=== PATIENT | male | born 1975 | race Caucasian/White ===

== ENCOUNTER 2023-05-13 01:57 | Inpatient (IN) | payer BC ==
[~2023-05-13] VITALS: Ht 177.8 cm; Wt 105.2 kg
[2023-05-13] MEDS ORDERED: ACETAMINOPHEN 500 MG TABLET PO ONE (02:30)
[2023-05-13] MEDS ORDERED: 0.9%NACL 1000ML 1,000 ML IV SCH (02:30)
[2023-05-13 02:42] LABS: BASOPHILS % (AUTO) 0.3 % (0.0-5.0); EOSINOPHILS % (AUTO) 0.4 % (0.0-8.0); HEMATOCRIT 43.8 % (42-54); LYMPHOCYTES % (AUTO) 9.1 % (21.0-51.0); MEAN CORPUSCULAR HEMOGLOBIN 32.2 pg (27.0-33.0); MEAN CORPUSCULAR HGB CONC 35.4 g/dL (32.0-36.0); MEAN CORPUSCULAR VOLUME 90.9 fL (79-99); MONOCYTES % (AUTO) 7.4 % (3.0-13.0); NEUTROPHILS % (AUTO) 82.4 % (40.0-77.0); PLATELET COUNT (AUTO) 179 K/uL (130-400); RED BLOOD CELL COUNT(AUTO) 4.82 MIL/uL (4.50-6.20); RED CELL DISTRIBUTION WIDTH 11.9 % (11.0-15.5); WHITE BLOOD COUNT (AUTO) 10.9 K/uL (4.8-10.8)
[2023-05-13 02:50] LABS: APPEARANCE,URINE CLEAR (CLEAR); BILIRUBIN,URINE NEGATIVE (NEGATIVE); COLOR,URINE LIGHT-YELLOW (YELLOW); GLUCOSE, URINE (UA) NEGATIVE (NEGATIVE); KETONES,URINE NEGATIVE (NEGATIVE); LEUKOCYTE ESTERASE ,URINE NEGATIVE Leu/uL (NEGATIVE); NITRATE,URINE NEGATIVE (NEGATIVE); OCCULT BLOOD,URINE MODERATE (NEGATIVE); PH,URINE 5.5 (5.0-8.0); PROTEIN,URINE NEGATIVE (NEGATIVE); UROBILINOGEN,URINE 0.2 mg/dL (0.2-1.0)
[2023-05-13 02:52] LABS: CREATININE 1.1 mg/dL (0.5-1.5); POTASSIUM 3.6 mmol/L (3.5-5.1)
[2023-05-13 02:54] LABS: MUCUS,URINE RARE LPF (None Seen)
[2023-05-13 02:57] LABS: TOTAL PROTEIN, SERUM 8.1 g/dL (6.0-8.3)
[2023-05-13] MEDS ORDERED: 0.9%NACL 1000ML 2,000 ML IV ONE (04:00)
[2023-05-13] MEDS ORDERED: ZOSYN 3.375GM +NS 50ML IVPB ONE (04:00)
[2023-05-13] MEDS ORDERED: VANCOMYCIN KIT 1 GM/250 ML IV.KIT IV ONE (04:00)
[2023-05-13] MEDS ORDERED: IOHEXOL 350 MG/ML 100ML INFUS..BTL IV ONE (04:04)
[2023-05-13] MEDS ORDERED: IBUPROFEN 800 MG TAB PO ONE (04:30)
[2023-05-13] MEDS ORDERED: ONDANSETRON 4MG INJ IVP PRN ×2 (08:00→13:00)
[2023-05-13] MEDS ORDERED: ACETAMINOPHEN 500 MG TABLET PO PRN (08:00)
[2023-05-13] MEDS: 0.9%NACL 1000ML 1,000 ML IV SCH ×2 (08:10→23:17)
[2023-05-13] MEDS: CEFEPIME HCL 2 GM VIAL IVPB SCH ×2 (08:11→20:11)
[2023-05-13] MEDS: PANTOPRAZOLE 40 MG/VIAL IVP SCH (08:11)
[2023-05-13 09:01] LABS: INR 0.98 (0.85-1.15); PROTHROMBIN TIME 11.4 SEC (9.6-11.6)
[2023-05-13 09:16] LABS: THYROID STIMULATING HORMONE 0.76 uIU/mL (0.36-3.74)
[2023-05-13] MEDS ORDERED: VANCOMYCIN PROTOCOL PER PHARMACY IV SCH (12:00)
[2023-05-13] MEDS ORDERED: METOPROLOL SUCCINATE 25 MG TAB.SR.24H PO SCH (12:30)
[2023-05-13] MEDS ORDERED: ACETAMINOPHEN 325 MG TAB PO PRN (13:00)
[2023-05-13] MEDS ORDERED: ACETAMINOPHEN 650 MG SUPPOSITORY RC PRN (13:00)
[2023-05-13] MEDS: METRONIDAZOLE 500MG/100ML BAG 100 ML IVPB SCH ×2 (14:08→23:03)
[2023-05-13] MEDS: MIDODRINE HCL 5 MG TABLET PO SCH ×2 (14:08→21:00)
[2023-05-13 16:25] VITALS: O2SAT 97
[2023-05-13 16:35] VITALS: BP 110/63; PULSE 74; RESP 18
[2023-05-13] MEDS: VANCOMYCIN 1.25 GM/250 ML BAG 250 ML IV SCH (16:38)
[2023-05-13] MEDS ORDERED: BICT1TAB PO (18:16)
[2023-05-13] MEDS ORDERED: APIX5TAB PO (18:16)
[2023-05-13] MEDS ORDERED: NITR100C9 PO (18:16)
[2023-05-13] MEDS ORDERED: TAMS-1 PO ×2 (18:16→18:19)
[2023-05-13] MEDS ORDERED: METO-408 PO (18:16)
[2023-05-13 19:55] VITALS: BP 136/68; PULSE 67; RESP 18
[2023-05-13 20:11] VITALS: O2SAT 96
[2023-05-13] MEDS ORDERED: ENOXAPARIN SODIUM 100 MG/1 ML SQ SCH (22:00)
[2023-05-14] VITALS (10 sets, daily range): BP systolic 109–144; BP diastolic 59–82; PULSE 61–79; RESP 18; TEMP 99.8; O2SAT 97–98
[2023-05-14] MEDS: VANCOMYCIN 1.25 GM/250 ML BAG 250 ML IV SCH ×2 (03:39→15:59)
[2023-05-14] MEDS: METRONIDAZOLE 500MG/100ML BAG 100 ML IVPB SCH ×2 (05:45→14:13)
[2023-05-14 06:25] LABS: BASOPHILS % (AUTO) 0.5 % (0.0-5.0); EOSINOPHILS % (AUTO) 0.2 % (0.0-8.0); HEMATOCRIT 36.3 % (42-54); MEAN CORPUSCULAR HEMOGLOBIN 32.1 pg (27.0-33.0); MEAN CORPUSCULAR HGB CONC 34.7 g/dL (32.0-36.0); MEAN CORPUSCULAR VOLUME 92.4 fL (79-99); MONOCYTES % (AUTO) 11.1 % (3.0-13.0); NEUTROPHILS % (AUTO) 74.7 % (40.0-77.0); PLATELET COUNT (AUTO) 158 K/uL (130-400); RED BLOOD CELL COUNT(AUTO) 3.93 MIL/uL (4.50-6.20); RED CELL DISTRIBUTION WIDTH 11.8 % (11.0-15.5); WHITE BLOOD COUNT (AUTO) 8.9 K/uL (4.8-10.8)
[2023-05-14 06:48] LABS: ALBUMIN 2.9 g/dL (3.5-5.0); TOTAL PROTEIN, SERUM 6.2 g/dL (6.0-8.3)
[2023-05-14 07:14] LABS: POTASSIUM 2.9 mmol/L (3.5-5.1)
[2023-05-14] MEDS: CEFEPIME HCL 2 GM VIAL IVPB SCH ×2 (08:00→20:41)
[2023-05-14] MEDS: PANTOPRAZOLE 40 MG/VIAL IVP SCH (08:00)
[2023-05-14] MEDS: TAMSULOSIN HCL 0.4 MG CAP.ER.24H PO SCH (08:00)
[2023-05-14] MEDS: DOXYCYCLINE 100MG+NS 250ML IV SCH ×2 (08:01→20:41)
[2023-05-14] MEDS: MIDODRINE HCL 5 MG TABLET PO SCH ×3 (09:00→20:43)
[2023-05-14] MEDS ORDERED: MAGNESIUM 2GM PREMIX 50ML 50 ML IV PRN (09:00)
[2023-05-14] MEDS ORDERED: POTASSIUM CHLORIDE 20MEQ/100ML 100 ML IV PRN (09:00)
[2023-05-14] MEDS ORDERED: APIXABAN 5 MG TABLET PO SCH (09:00)
[2023-05-14] MEDS ORDERED: POTASSIUM CHLORIDE 10% ELIXIR 20 MEQ/15 ML UDCUP PO PRN (09:00)
[2023-05-14] MEDS: KCL 20 MEQ ERTAB PO PRN ×4 (09:18→14:21)
[2023-05-14] MEDS: 0.9%NACL 1000ML 1,000 ML IV SCH (14:21)
[2023-05-14] MEDS: ENOXAPARIN SODIUM 100 MG/1 ML SQ SCH (20:42)
[2023-05-14] MEDS: METOPROLOL SUCCINATE 25 MG TAB.SR.24H PO SCH (20:43)
[2023-05-15] VITALS (7 sets, daily range): BP systolic 114–140; BP diastolic 62–78; PULSE 62–72; RESP 18–20; O2SAT 96–98
[2023-05-15] MEDS: METRONIDAZOLE 500MG/100ML BAG 100 ML IVPB SCH ×2 (00:49→05:21)
[2023-05-15] MEDS: VANCOMYCIN 1.25 GM/250 ML BAG 250 ML IV SCH ×3 (00:49→17:06)
[2023-05-15] MEDS: CEFEPIME HCL 2 GM VIAL IVPB SCH ×2 (08:27→20:34)
[2023-05-15] MEDS: MIDODRINE HCL 5 MG TABLET PO SCH ×3 (08:27→20:35)
[2023-05-15] MEDS: DOXYCYCLINE 100MG+NS 250ML IV SCH (08:27)
[2023-05-15] MEDS: PANTOPRAZOLE 40 MG/VIAL IVP SCH (08:27)
[2023-05-15] MEDS: ENOXAPARIN SODIUM 100 MG/1 ML SQ SCH ×2 (08:28→20:35)
[2023-05-15] MEDS: TAMSULOSIN HCL 0.4 MG CAP.ER.24H PO SCH (08:28)
[2023-05-15] MEDS: METOPROLOL SUCCINATE 25 MG TAB.SR.24H PO SCH (20:36)
[2023-05-16] VITALS (12 sets, daily range): BP systolic 104–142; BP diastolic 66–88; PULSE 60–80; RESP 18–20; O2SAT 98
[2023-05-16] MEDS: VANCOMYCIN 1.25 GM/250 ML BAG 250 ML IV SCH ×2 (00:39→09:56)
[2023-05-16 04:14] LABS: HEMATOCRIT 38.2 % (42-54); MEAN CORPUSCULAR HEMOGLOBIN 32.2 pg (27.0-33.0); MEAN CORPUSCULAR HGB CONC 34.8 g/dL (32.0-36.0); MEAN CORPUSCULAR VOLUME 92.5 fL (79-99); NEUTROPHILS % (AUTO) 50.4 % (40.0-77.0); PLATELET COUNT (AUTO) 201 K/uL (130-400); RED BLOOD CELL COUNT(AUTO) 4.13 MIL/uL (4.50-6.20); RED CELL DISTRIBUTION WIDTH 12.4 % (11.0-15.5); WHITE BLOOD COUNT (AUTO) 6.2 K/uL (4.8-10.8)
[2023-05-16 04:35] LABS: CREATININE 0.9 mg/dL (0.5-1.5); MAGNESIUM 1.9 mg/dL (1.80-2.40); PHOSPHORUS 4.2 mg/dL (2.5-4.9); POTASSIUM 3.6 mmol/L (3.5-5.1)
[2023-05-16] MEDS: PANTOPRAZOLE 40 MG/VIAL IVP SCH (09:54)
[2023-05-16] MEDS: TAMSULOSIN HCL 0.4 MG CAP.ER.24H PO SCH (09:54)
[2023-05-16] MEDS: CEFEPIME HCL 2 GM VIAL IVPB SCH (09:55)
[2023-05-16] MEDS: KCL 20 MEQ ERTAB PO PRN ×2 (09:55→17:36)
[2023-05-16] MEDS: ENOXAPARIN SODIUM 100 MG/1 ML SQ SCH ×2 (09:56→23:05)
[2023-05-16] MEDS ORDERED: AMPICILLIN 2GM VIAL IV SCH (13:00)
[2023-05-16] MEDS ORDERED: AMPICILLIN 2GM+NS 100ML 100 ML IV SCH (14:00)
[2023-05-16] MEDS ORDERED: LIDOCAINE HCL 2% VISCOUS 15 ML UDCUP PO ONE ×2 (15:45→16:40)
[2023-05-16] MEDS ORDERED: FENTANYL CITRATE PF 50 MCG/1 ML 2ML VIAL ONE (15:50)
[2023-05-16] MEDS ORDERED: MIDAZOLAM HCL 1 MG/ML 2ML VIAL ONE (15:51)
[2023-05-16] MEDS ORDERED: LIDOCAINE HCL 2% VISCOUS 15 ML UDCUP ONE (15:54)
[2023-05-16] MEDS: PHARMACY COMMUNICATION MISC SCH ×2 (16:30→16:59)
[2023-05-16] MEDS ORDERED: MIDAZOLAM HCL 1 MG/ML 2ML VIAL IVP ONE (16:40)
[2023-05-16] MEDS ORDERED: FENTANYL CITRATE PF 50 MCG/1 ML 2ML VIAL IVP ONE (16:40)
[2023-05-16] MEDS: AMPICILLIN 2GM+NS 100ML 100 ML IV SCH ×2 (17:27→23:05)
[2023-05-16] MEDS: METOPROLOL SUCCINATE 25 MG TAB.SR.24H PO SCH (23:05)
[2023-05-17] VITALS (8 sets, daily range): BP systolic 106–133; BP diastolic 72–85; PULSE 58–79; RESP 18–20; O2SAT 97–98
[2023-05-17 03:47] LABS: BASOPHILS % (AUTO) 0.6 % (0.0-5.0); EOSINOPHILS % (AUTO) 3.5 % (0.0-8.0); HEMATOCRIT 37.3 % (42-54); LYMPHOCYTES % (AUTO) 33.4 % (21.0-51.0); MEAN CORPUSCULAR HEMOGLOBIN 32.2 pg (27.0-33.0); MEAN CORPUSCULAR HGB CONC 34.9 g/dL (32.0-36.0); MEAN CORPUSCULAR VOLUME 92.3 fL (79-99); MONOCYTES % (AUTO) 9.6 % (3.0-13.0); NEUTROPHILS % (AUTO) 51.9 % (40.0-77.0); PLATELET COUNT (AUTO) 220 K/uL (130-400); RED BLOOD CELL COUNT(AUTO) 4.04 MIL/uL (4.50-6.20); RED CELL DISTRIBUTION WIDTH 12.1 % (11.0-15.5); WHITE BLOOD COUNT (AUTO) 6.3 K/uL (4.8-10.8)
[2023-05-17 04:05] LABS: POTASSIUM 3.6 mmol/L (3.5-5.1)
[2023-05-17] MEDS: KCL 20 MEQ ERTAB PO PRN (05:29)
[2023-05-17] MEDS: AMPICILLIN 2GM+NS 100ML 100 ML IV SCH ×4 (05:29→23:43)
[2023-05-17] MEDS: PANTOPRAZOLE 40 MG/VIAL IVP SCH (08:29)
[2023-05-17] MEDS: TAMSULOSIN HCL 0.4 MG CAP.ER.24H PO SCH (08:30)
[2023-05-17] MEDS: ENOXAPARIN SODIUM 100 MG/1 ML SQ SCH ×2 (08:31→20:30)
[2023-05-17 13:14] LABS: HIV SCREEN 4TH GENERATION Preliminary Reactive (Non Reactive)
[2023-05-17] MEDS: METOPROLOL SUCCINATE 25 MG TAB.SR.24H PO SCH (20:28)
[2023-05-17 20:41] LABS: INR 0.93 (0.85-1.15); PROTHROMBIN TIME 10.6 SEC (9.6-11.6)
[2023-05-18 04:50] LABS: BASOPHILS % (AUTO) 0.7 % (0.0-5.0); EOSINOPHILS % (AUTO) 3.7 % (0.0-8.0); HEMATOCRIT 37.2 % (42-54); LYMPHOCYTES % (AUTO) 32.5 % (21.0-51.0); MEAN CORPUSCULAR HGB CONC 34.7 g/dL (32.0-36.0); MEAN CORPUSCULAR VOLUME 92.3 fL (79-99); MONOCYTES % (AUTO) 8.1 % (3.0-13.0); NEUTROPHILS % (AUTO) 53.8 % (40.0-77.0); PLATELET COUNT (AUTO) 252 K/uL (130-400); RED BLOOD CELL COUNT(AUTO) 4.03 MIL/uL (4.50-6.20); WHITE BLOOD COUNT (AUTO) 7.3 K/uL (4.8-10.8)
[2023-05-18 05:03] LABS: CREATININE 0.9 mg/dL (0.5-1.5); POTASSIUM 3.4 mmol/L (3.5-5.1)
[2023-05-18 05:13] VITALS: BP 125/78; PULSE 60; RESP 18
[2023-05-18] MEDS: AMPICILLIN 2GM+NS 100ML 100 ML IV SCH (06:20)
[2023-05-18] MEDS: KCL 20 MEQ ERTAB PO PRN ×2 (06:21→09:19)
[2023-05-18 07:00] VITALS: BP 135/72; PULSE 68; RESP 20
[2023-05-18 08:00] VITALS: O2SAT 96
[2023-05-18] MEDS ORDERED: 0.9%NACL 10ML VIAL IV SCH (09:00)
[2023-05-18] MEDS: PANTOPRAZOLE 40 MG/VIAL IVP SCH (09:19)
[2023-05-18] MEDS: TAMSULOSIN HCL 0.4 MG CAP.ER.24H PO SCH (09:19)
[2023-05-18] MEDS: ENOXAPARIN SODIUM 100 MG/1 ML SQ SCH (09:19)
[2023-05-18 11:30] VITALS: BP 105/78; PULSE 63; RESP 20
[2023-05-22 16:10] LABS: ROCKY MT SPOTTED FEVER IGG <1:64 (Neg:<1:64); ROCKY MT SPOTTED FEVER IGM <1:64 (Neg:<1:64); TYPHUS FEVER AB IGG <1:64 (Neg:<1:64); TYPHUS FEVER AB IGM <1:64 (Neg:<1:64)
== END 2023-05-18 15:47 | disposition home or self-care (01) | DRG 872 ==
LOC: EDH 01:57 → EDHIP 07:29 → 2AH 16:35
PROVIDERS: ADMIT Internal Medicine; ATTEND Internal Medicine
PROC: B24BYZZ Ultrasonography of Heart with Aorta using Other Contrast (ICD-10-PCS; principal; 2023-05-16)
DX: A41.81 Sepsis due to Enterococcus (principal); E87.20 Acidosis, unspecified; N39.0 Urinary tract infection, site not specified; C85.90 Non-Hodgkin lymphoma, unspecified, unspecified site; I42.1 Obstructive hypertrophic cardiomyopathy; I42.2 Other hypertrophic cardiomyopathy; Z20.822 Contact with and (suspected) exposure to COVID-19; I48.91 Unspecified atrial fibrillation; E66.09 Other obesity due to excess calories; B95.2 Enterococcus as the cause of diseases classified elsewhere; E78.5 Hyperlipidemia, unspecified; E87.6 Hypokalemia; I10 Essential (primary) hypertension; I27.20 Pulmonary hypertension, unspecified; N40.0 Benign prostatic hyperplasia without lower urinary tract symptoms; Z79.01 Long term (current) use of anticoagulants; Z87.440 Personal history of urinary (tract) infections; Z68.33 Body mass index [BMI] 33.0-33.9, adult
CPT/HCPCS: 36415; 70450; 71045; 74177; 76705; 80048; 80053; 80202; 81001; 82232; 82550; 82948; 83605; 83615; 83735; 84100; 84132; 84145; 84443; 85025; 85610; 85651; 86140; 86359; 86361; 86701; 86757; 87040; 87077; 87088; 87186; 87324; 87389; 87390; 87536; 87635; 87804; 93306; 93312; C1751; C1894; C9113; C9803; G0378; J0290; J0692; J1650; J2250; J2543; J3010; J3370; J3475; J3480; J3490; J7030; Q9967; 3370